=== PATIENT | female | born 1970 | race Caucasian/White ===

== ENCOUNTER 2025-05-05 08:52 | Emergency (ER) | payer OTHER, SELFPAY ==
[2025-05-05 09:02] VITALS: BP 114/80; PULSE 83; RESP 20; TEMP 36.6; O2SAT 100
--- OUTSIDE RECORDS SUMMARY | 2025-05-05 09:07 | XMS_ITS | Clinical Summary ---
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 Role Phone Frank Cheema MD Primary Care Provider [phone] Allergies Active Allergy Reactions Criticality Noted Date Comments Hydrocodone Unknown 06/08/2024 Medications No known medications Social History Tobacco Use Types Packs/Day Years Used Date Smoking Tobacco: Never Smokeless Tobacco: Never Tobacco Cessation:Counseling Given: Not Answered Alcohol Use Standard Drinks/Week Comments Yes 0 (1 standard drink = 0.6 oz pur e alcohol) on occassion Comments Unknown Sex and Gender Information Value Date Recorded Sex Assigned at Not on file Legal Sex Female 9:57 PM CDT Gender Identity Not on file Sexual Orientation Not on file Last Filed Vital Signs Vital Sign Reading Time Taken Comments Blood Pressure 142/77 06/08/2024 1:30 PM CDT Pulse 84 06/08/2024 1:30 PM CDT Temperature 36.7 C (98.1 F) 06/08/2024 11:16 AM CDT Respiratory Rate 18 06/08/2024 11:16 AM CDT Oxygen Saturation 100% 06/08/2024 1:30 PM CDT Inhaled Oxygen Concentration - - Weight 86.2 kg (190 lb) 06/08/2024 11:16 AM CDT Height 165.1 cm (5' 5) 06/08/2024 11:16 AM CDT Body Mass Index 31.62 06/08/2024 11:16 AM CDT Plan of Treatment Health Maintenance Due Date Last Done Comments Hepatitis C Virus (HCV) Screening 1968 Mammogram 1968 TdaP Immunization 1968 Hepatitis B Immunization (1 of 3 - 19+ 3-dose series) 12/15/1987 Pap Smear 1989 Cervical Cancer Screening (CCS) 1998 HPV/Cotest 1998 Cologuard 2013 Colonoscopy 2013 Colorectal Cancer Screening 2013 Immunochemical Fecal Occult Blood 2013 Pneumococcal Immunization (5 0+ years) (1 of 1 - PCV) 2018 Zoster Immunization (1 of 2) 2018 SARS-COV-2 Immunization (3 - 2023- season) 2024 11/27/2020, 11/06/2020 Influenza Immunization (#1) 2025 Respiratory Syncytial Virus (RSV) Immunization (Adult) (1 - 1-dose 75+ series) 12/15/2043 Human Papillomavirus (HPV) Immunization Aged Out No longer eligible b ased on patient's age to complete this topic Meningococcal Immunization (ACWY) Aged Out No longer eligible b ased on patient's age to complete this topic Rotavirus Immunization Aged Out No lo nger eligible based on patient's age to complete this topic Insurance MEDICAID [employer] Care Teams Industrial 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
[2025-05-05 09:24] LABS: EDUAAPPEAR Cloudy; EDUABILI Negative (Negative); EDUABLOOD 2+ (Negative); EDUACOLOR1 Yellow; EDUAGLUCOSE Negative (Negative); EDUAKETONE Negative (Negative); EDUALEUKO 2+ (Negative); EDUANITRATE Negative (Negative); EDUAPH 7.5; EDUAPROTEIN 2+ (Negative); EDUASPGRAVITY 1.020; EDUAUROBILI 0.2
--- NOTE | 2025-05-05 09:41 | ED_ITS ---
HPI - Female Genitourinary General Chief complaint: Urogenital-Female Stated complaint: Urinary Problem Time Seen by Provider: 05/05/25 09:41 Source: patient and RN notes reviewed Mode of arrival: ambulatory Limitations: no limitations History of Present Illness HPI Narrative: 54-year-old female presents Express Care complaining of urinary symptoms for 5 days. Patient reports having dysuria, increased frequency, suprapubic pain, and midback pain. Patient denies any fevers, body aches, chills, nausea, vomiting, diarrhea, or blood in her urine. Patient has not taken anything [id number] for symptoms. Patient denies any significant past medical history. Related Data Home Medications ?Medication ?Instructions ?Recorded ?Confirmed ?Last Taken ?Type atorvastatin 20 mg tablet mg 05/05/25 Unknown History bupropion HCl 300 mg 24 hr tablet, mg PO 05/05/25 Unknown History extended release hydroxyzine HCl 25 mg tablet mg 05/05/25 Unknown History levothyroxine 100 mcg tablet mcg 05/05/25 Unknown History olmesartan 20 mg tablet mg 05/05/25 Unknown History tramadol 50 mg tablet mg 05/05/25 Unknown History trazodone 100 mg tablet mg 05/05/25 Unknown History Allergies Allergy/AdvReac Type Severity Reaction Status Date / Time hydrocodone Allergy Unknown unknown Verified 05/05/25 09:07 Review of Systems Review of Systems: CONSTITUTIONAL: Denies fever, chills, body aches, or sweats. EYES: Denies visual changes, redness, or discharge. ENT: Denies rhinorrhea, congestion, sore throat, or otalgia. CARDIOVASCULAR: Denies chest pain, palpitations, or edema. RESPIRATORY: Denies cough or dyspnea. GASTROINTESTINAL: Positive for suprapubic pain. Negative for nausea, vomiting, or diarrhea. GENITOURINARY: Positive for dysuria, increased frequency, hesitancy. Negative for hematuria or vaginal bleeding. SKIN: Denies rash or itching. MUSCULOSKELETAL positive for back pain. Negative for joint pain, or myalgia. NEUROLOGIC: Denies headache, numbness, or weakness. PSYCHIATRIC: Denies anxiety or depression. All other systems reviewed are negative, except as documented in HPI. PMFSH Comments At the time of my signature, I reviewed and agree with the nursing past medical, surgical, social, and family history. There is no relevant family history pertinent to the patient complaint. Exam Narrative: GENERAL: This is a well-nourished, well-developed adult, in no apparent distress. They are non ill-appearing, nontoxic appearing. HEAD: normocephalic, atraumatic. EYES: Sclera clear/white. Vision is grossly intact. Conjunctiva normal bilaterally. Extraocular movements intact. EARS: External ears normal,Hearing grossly intact. NOSE: External nose normal THROAT: Mucous membranes moist NECK: Normal range of motion CARDIOVASCULAR: Regular rate and rhythm. Normal S1-S2. No clicks, gallops, rubs, murmurs. RESPIRATORY: Respiratory rate normal, respiratory effort nonlabored, no respiratory distress. Lung sounds clear to auscultation throughout. Lung sounds equal bilaterally. No adventitious lung sounds. GASTROINTESTINAL: Abdomen soft, flat, non-tender, nondistended. Bowel sounds are active. No hepato-splenomegaly, or palpable masses. No guarding. No rebound tenderness. SKIN: warm, Dry, intact with no suspicious lesions or rash, good texture and turgor. NEURO: awake, alert, and oriented to person, place and time. There were no obvious focal neurologic abnormalities. EXTREMITIES: No joint tenderness, effusion, or edema noted. BACK: Nontender without deformity. No CVA tenderness. Course Course Emergency Course: Portions of this record may have been created with voice recognition software Level of Care: Express Care Visit Vital Signs Vital signs: Vital Signs Temperature 97.8 F 05/05/25 09:02 Pulse Rate 83 05/05/25 09:02 Respiratory Rate 20 05/05/25 09:02 Blood Pressure 114/80 05/05/25 09:02 Pulse Oximetry 100 05/05/25 09:02 Oxygen Delivery Room Air 05/05/25 09:02 Temperature 97.8 F 05/05/25 09:02 Pulse Rate 83 05/05/25 09:02 Respiratory Rate 20 05/05/25 09:02 Blood Pressure 114/80 05/05/25 09:02 Pulse Oximetry 100 05/05/25 09:02 Oxygen Delivery Room Air 05/05/25 09:02 MDM - Female Genitourinary MDM Narrative Medical decision making narrative: Urine dipstick shows evidence of urinary tract infection. Urine culture pending. Will treat patient with cephalexin. Discussed physical exam findings. Advised supportive measures and signs/symptoms to go to the ER. Pt is approp ginger for outpt treatment and f/u. Differential Diagnosis Differential diagnosis: Likely urinary tract infection, cystitis and other (Pyelonephritis) Lab Data Attestation: I reviewed the patient's lab results. Labs: Lab Results 05/05/25 Range/Units 09:16 POC Urine Color Yellow POC Urine Clarity Cloudy POC Urine pH 7.5 POC Ur Specif [place] 1.020 POC Urine Protein 2+ (Negative) POC Ur Glucose (UA) Negative (Negative) POC Urine Ketones Negative (Negative) POC Urine Blood 2+ (Negative) POC Urine Nitrite Negative (Negative) POC Urine Bilirubin Negative (Negative) POC Urine Urobilinogen 0.2 POC U Leukocyte Esteras 2+ (Negative) Discharge Plan Discharge Clinical Impression: Urinary tract infection Qualifiers: Urinary tract infection type: site unspecified Hematuria presence: with hematuria Qualified Code(s): N39.0 - Urinary tract infection, site not specified Patient Disposition: Home Condition: Stable Instructions: Antibiotic Form, Urinary Tract Infection in Women (ED) Additional Instructions: Take the antibiotic as prescribed The urine will be sent of for a culture to identify what type of bacteria is causing your infection. If the culture shows that the antibiotic will not get rid of your infection, you will be notified and a new antibiotic will be called in for you. Increase water intake you will need to follow up with your PCP 3-5 days. Go to the ER for any worsening symptoms, abdominal pain, fevers, nausea, vomiting, or any other concerns Patient Language: [place] Islander Prescriptions: New cephalexin 500 mg capsule 500 mg PO BID 5 Days Qty: 10 0RF No Action atorvastatin 20 mg tablet tramadol 50 mg tablet levothyroxine 100 mcg tablet trazodone 100 mg tablet hydroxyzine HCl 25 mg tablet olmesartan 20 mg tablet bupropion HCl 300 mg tablet extended release 24 hr PO Follow-up/Referrals: Deni,MD Frank [Primary Care Provider] - Time of Disposition: 09:39
== END 2025-05-05 09:46 | disposition home or self-care (01) ==
PROVIDERS: PCP Family Medicine
DX: N39.0 Urinary tract infection, site not specified (principal); E03.9 Hypothyroidism, unspecified; E78.00 Pure hypercholesterolemia, unspecified
CPT/HCPCS: 81003; 99203; G0463

== ENCOUNTER 2025-05-23 17:41 | Emergency (ER) | payer OTHER, SELFPAY ==
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
[2025-05-23 17:43] VITALS: BP 148/88; PULSE 71; RESP 21; TEMP 36.7; O2SAT 99
[2025-05-23 18:34] VITALS: BP 173/90; PULSE 55; RESP 16; TEMP 36.4; O2SAT 96
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
[2025-05-23] MEDS: ACETAMINOPHEN 500 MG TABLET 1000 MG PO (19:28)
[2025-05-23] MEDS: diazePAM (*CRX) 2 MG TABLET PO (21:17)
[2025-05-23] MEDS: KETOROLAC 30 MG/ML VIAL (*BKC) 15 MG IM (21:18)
[2025-05-23 21:35] VITALS: BP 138/79; PULSE 77; RESP 14; O2SAT 98
== END 2025-05-23 21:23 | disposition home or self-care (01) ==
PROVIDERS: Emergency Provider Student in an Organized Health Care Education/Training Program; PCP Family Medicine
DX: S49.92XA Unspecified injury of left shoulder and upper arm, initial encounter (principal); S79.912A Unspecified injury of left hip, initial encounter; S19.9XXA Unspecified injury of neck, initial encounter; M47.812 Spondylosis without myelopathy or radiculopathy, cervical region; V43.52XA Car driver injured in collision with other type car in traffic accident, initial encounter
CPT/HCPCS: 70450; 72125; 73030; 73502; 96372; 99284; A9270; J1885